=== PATIENT | female | born 1935 | race Two or more races ===

== ENCOUNTER 2019-01-20 09:09 | Inpatient (IN) | payer OTHER ==
[~2019-01-20] VITALS: Ht 152.4 cm; Wt 54.4 kg
[~2019-01-20 09:09] MED LIST: AMOX-427 PO
--- NOTE | 2019-01-20 09:16 | NUR ---
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 KEPT RESTED AND COMFORTABLE.
--- NOTE | 2019-01-20 09:17 | NUR ---
SEEN AND EXAMINED BY DR. TERRELL.
--- NOTE | 2019-01-20 09:18 | NUR ---
CODE STROKE ACTIVATED.
--- NOTE | 2019-01-20 09:18 | NUR ---
IV SALINE LOCK INSERTED AND LABS DRAWNED AND SENT TO LAB.
--- NOTE | 2019-01-20 09:20 | NUR ---
PT IS WHEELD TO CT SCAN VIA ACLS PROTOCOL.
--- NOTE | 2019-01-20 09:24 | NUR ---
CALLED [facility] STROKE HOTLINE SPOKE WING TO PRESENT CASE. AWAITING A CALL BACK FROM FROM STROKE DR GARCIA.
[2019-01-20 09:25] LABS: BASOPHILS % (AUTO) 0.5 % (0.0-2.0); EOSINOPHILS % (AUTO) 0.6 % (0.0-6.0); HEMATOCRIT 41 % (33-45); HEMOGLOBIN 13.5 g/dL (11.5-14.8); LYMPHOCYTES # (AUTO) 1.9 /CMM (0.8-4.8); LYMPHOCYTES % (AUTO) 23.3 % (20.0-44.0); MEAN CORPUSCULAR HGB CONC 33 g/dl (31.0-36.0); MEAN CORPUSCULAR VOLUME 89 fL (82-100); MONOCYTES # (AUTO) 0.6 /CMM (0.1-1.30); MONOCYTES % (AUTO) 7.8 % (2.0-12.0); NEUTROPHILS # (AUTO) 5.6 /CMM (1.8-8.9); NEUTROPHILS % (AUTO) 67.8 % (43.0-81.0); PLATELET COUNT (AUTO) 229 /CMM (150-450); RED BLOOD CELL COUNT(AUTO) 4.57 MIL/uL (4.0-5.2); WHITE BLOOD COUNT (AUTO) 8.2 K/uL (4.3-11.0)
--- NOTE | 2019-01-20 09:30 | NUR ---
PT IS BACK FROM THE CT SCAN.
--- NOTE | 2019-01-20 09:34 | NUR ---
DR. JOSE RICE FOR PT EVAL.
[2019-01-20 09:40] LABS: CHLORIDE 104 mmol/L (98-107); POTASSIUM 3.7 mmol/L (3.5-5.1); SODIUM SERUM 142 mmol/L (136-145)
[2019-01-20 09:41] LABS: ALANINE AMINOTRANSFERASE 11 U/L (12-78); ALBUMIN 3.2 g/dL (3.4-5.0); ALKALINE PHOSPHATASE 96 U/L (46-116); ASPARTATE AMINOTRANSFERASE 12 U/L (15-37); BILIRUBIN,DIRECT 0.1 mg/dL (0.0-0.2); BILIRUBIN,TOTAL 0.6 mg/dL (0.2-1.0); CALCIUM, SERUM 9.5 mg/dL (8.5-10.1); CARBON DIOXIDE 30 mmol/L (21-32); CHOLESTEROL 171 mg/dL (<200); CREATININE 0.9 mg/dL (0.6-1.3); GLUCOSE 107 mg/dL (74-106); HDL CHOLESTEROL 57 mg/dL (40-60); LDL 104 mg/dL (0-99); TOTAL PROTEIN, SERUM 7.6 g/dL (6.4-8.2); TRIGLYCERIDES 79 mg/dL (30-150); UREA NITROGEN, BLOOD 13 mg/dL (7-18)
[2019-01-20] MEDS ORDERED: IOHEXOL-350 100 ML VIAL IV ONE (10:15)
[2019-01-20] MEDS ORDERED: IV NS 0.9% 500 ML IV ONE (10:16)
--- NOTE | 2019-01-20 10:23 | NUR ---
PT TAKEN TO RADIOLOGY VIA [facility]INCE
--- NOTE | 2019-01-20 11:03 | NUR ---
DR FRIAS PAGED THRU CELL
--- NOTE | 2019-01-20 11:09 | NUR ---
310-1 DR FRIAS DX: TIA STROKE
[2019-01-20] MEDS ORDERED: AMLO5TAB9 PO (11:14)
[2019-01-20] MEDS ORDERED: BENZ-38 PO (11:14)
[2019-01-20] MEDS ORDERED: LEVO750T46 PO (11:14)
[2019-01-20] MEDS ORDERED: FLUT12AE5 IH (11:14)
[2019-01-20] MEDS ORDERED: ASPIRIN 325 MG TABLET PO ONE (11:30)
--- NOTE | 2019-01-20 11:33 | NUR ---
REPORT GIVEN TO SHANICE VALDES FOR FELIPA
[2019-01-20] MEDS ORDERED: ASPIRIN 325 MG TABLET ONE (11:35)
--- NOTE | 2019-01-20 11:38 | NUR ---
REPORT GIVEN TO SHANICE LEÓN FOR FELIPA
--- NOTE | 2019-01-20 12:26 | NUR ---
TEXTED DR. JONES FOR MRI APPROVAL.
[2019-01-20 13:00] VITALS: BP 121/78
--- NOTE | 2019-01-20 13:00 | NUR ---
PT TRANSFERRED TO [address]/[facility] VIA ACLS PROTOCOL
--- NOTE | 2019-01-20 13:04 | NUR ---
juni received an 83 year old female, from er, came in w/ dx of tia, awake,alert,oriented x4,not in any form of distress, respirations even and unlabored,no sob noted, lungs are clear,abdomen soft,positive bowel sounds,denies pain at thisitme, will monitor patient's condition.
--- NOTE | 2019-01-20 13:30 | NUR ---
ms jessica lunch served,tolerated well.spoke w/ dr. saldana for orders.
--- NOTE | 2019-01-20 15:11 | NUR ---
ms rn went down for mri.
[2019-01-20] MEDS: LEVOFLOXACIN (500MG) 500 MG TABLET PO SCH (15:45)
[2019-01-20 16:00] VITALS: BP 130/53
--- NOTE | 2019-01-20 17:42 | NUR ---
ms rn on bed, no distress ,echo 65-70%, mri negative,all needs attended.
[2019-01-20] MEDS ORDERED: GADODIAMIDE 5 MMOL/10 ML VIAL IJ ONE (17:45)
[2019-01-20] MEDS ORDERED: GADODIAMIDE 2.5 MMOL/5 ML VIAL IJ ONE (17:45)
--- NOTE | 2019-01-20 19:50 | NUR ---
PILLOWCASE CLEANER OPENING NOTES RECEIVED PATIENT IN BED AWAKE, ALERT AND ORIENTED X4, VERBALLY RESPONSIVE, ABLE TO MAKE NEEDS KNOWN. BREATHING EVEN AND UNLABORED. NO SOB NOTED. TOLERATING ROOM AIR. NO COMPLAINTS OF PAIN OR DISCOMFORT. NO FACIAL GRIMACING. IV ON LEFT AC G#18 INTACT AND PATENT. SKIN DRY AND WARM TO TOUCH. AFEBRILE. ALL OTHER NEEDS ATTENDED TO. SAFETY MEASURES IN PLACE. CALL LIGHT WITHIN REACH. WILL CONTINUE TO MONITOR.
[2019-01-20 20:00] VITALS: BP 132/67
[2019-01-20] MEDS ORDERED: ATORVASTATIN 10 MG TABLET PO SCH (22:00)
[2019-01-21 00:05] VITALS: BP 128/66
[2019-01-21 00:13] VITALS: BP 128/66
[2019-01-21 04:00] VITALS: BP 137/66
[2019-01-21 06:25] LABS: BASOPHILS % (AUTO) 0.4 % (0.0-2.0); EOSINOPHILS % (AUTO) 1.1 % (0.0-6.0); HEMATOCRIT 37 % (33-45); HEMOGLOBIN 12.2 g/dL (11.5-14.8); LYMPHOCYTES # (AUTO) 1.2 /CMM (0.8-4.8); LYMPHOCYTES % (AUTO) 20.3 % (20.0-44.0); MEAN CORPUSCULAR HGB CONC 33 g/dl (31.0-36.0); MEAN CORPUSCULAR VOLUME 89 fL (82-100); MONOCYTES # (AUTO) 0.5 /CMM (0.1-1.30); MONOCYTES % (AUTO) 8.9 % (2.0-12.0); NEUTROPHILS # (AUTO) 4.2 /CMM (1.8-8.9); NEUTROPHILS % (AUTO) 69.3 % (43.0-81.0); PLATELET COUNT (AUTO) 211 /CMM (150-450); RED BLOOD CELL COUNT(AUTO) 4.17 MIL/uL (4.0-5.2); WHITE BLOOD COUNT (AUTO) 6.1 K/uL (4.3-11.0)
--- NOTE | 2019-01-21 06:47 | NUR ---
EYE SPECIALIST CLOSING NOTES PATIENT RESTING IN BED. NO ACUTE CHANGES THROUGHOUT SHIFT. BREATHING EVEN AND UNLABORED. NO SOB NOTED. TOLERATING ROOM AIR. NO COMPLAINTS OF PAIN OR DISCOMFORT. NO FACIAL GRIMACING. IV ON LEFT AC G#18 INTACT AND PATENT. SKIN DRY AND WARM TO TOUCH. AFEBRILE. ALL OTHER NEEDS ATTENDED TO. SAFETY MEASURES IN PLACE. CALL LIGHT WITHIN REACH. WILL ENDORSE TO ONCOMING NURSE FOR FELIPA.
[2019-01-21 06:48] LABS: CALCIUM, SERUM 8.9 mg/dL (8.5-10.1); CARBON DIOXIDE 32 mmol/L (21-32); CHLORIDE 108 mmol/L (98-107); CREATININE 0.8 mg/dL (0.6-1.3); GLUCOSE 97 mg/dL (74-106); MAGNESIUM 1.8 mg/dL (1.8-2.4); PHOSPHORUS 3.8 mg/dL (2.5-4.9); POTASSIUM 4.4 mmol/L (3.5-5.1); SODIUM SERUM 146 mmol/L (136-145); UREA NITROGEN, BLOOD 13 mg/dL (7-18)
[2019-01-21 06:56] LABS: CHOLESTEROL 155 mg/dL (<200); HDL CHOLESTEROL 49 mg/dL (40-60); LDL 96 mg/dL (0-99); THYROID STIMULATING HORMONE 2.459 uIU/mL (0.358-3.74); TRIGLYCERIDES 68 mg/dL (30-150)
[2019-01-21 08:00] VITALS: BP 148/74
--- NOTE | 2019-01-21 08:00 | NUR ---
RN NOTES RECEIVED PATIENT IN THE BED, A/O X3/4, PATIENT STABLE NO ACUTE RESPIRATORY DISTRESS, STROKE ASSESSMENT DONE. PATIENT STABLE , V/S STABLE, UPPER AND LOWER EXTREMITIES STABLE, NO WEAKNESS NOTED. PATIENT REFUSED PAIN AT THIS TIME, SCHEDULED MEDICATION ADMINISTERED. CALL LIGHT WITHIN TO REACH. PATIENT USING BATHROOM, SAFETY PRECAUTION MAINTAINED ALL THE TIME.
[2019-01-21] MEDS ORDERED: ATOR10TA PO (08:17)
[2019-01-21] MEDS ORDERED: ASPI-1169 PO (08:17)
[2019-01-21 08:49] VITALS: BP 148/74
[2019-01-21] MEDS ORDERED: ASPIRIN 81 MG TAB.CHEW PO SCH (09:00)
[2019-01-21] MEDS ORDERED: AMLODIPINE BESYLATE 5 MG TABLET PO SCH (09:00)
--- NOTE | 2019-01-21 12:30 | NUR ---
RN NOTES PER PATIENT REFUSED TO WAIT NEURO LOAN COORDINATOR BEFORE DISCHARGE. NOTIFIED DR TIDWELL, AND PER IF PATIENT NOT WAITING NEURO CONSULTATION TO DISCHARGE HOME SAFETY, WILL SIGN AMA. ORDER TAKEN AND CARRIED OUT.
--- NOTE | 2019-01-21 13:00 | NUR ---
RN NOTES NOTIFIED PATIENT AND Dr. TIDWELL'S ORDER. PATIENT KIKI TO WAIT NEURO WEB ASSISTANT CONSULTATION. CONTINUED MONITORING.
[2019-01-21] MEDS: LEVOFLOXACIN (500MG) 500 MG TABLET PO SCH (16:04)
--- NOTE | 2019-01-21 16:21 | NUR ---
DISCHARGE NOTES PATIENT DISCHARGE HOME AT THIS TIME CLEARED WITH NEURO BRIDGE CREW MEMBER. PATIENT A/O X4, MED COMPLAINT, REFUSED PAIN AT THIS TIME. MED RECONCILIATION AND DISCHARGE ORDER REVIEWED AND EXPLAINED TO PATIENT AND . PATIENT VERBALIZED UNDERSTANDING. BELONGING WITH THE PATIENT. PATIENT SIGN PAPERWORK. PRESCRIPTION HANDED TO THE PATIENT. PATIENT WILL FOLLOW PRIMARY MD, AND TAKE HOME MEDICATION. ESCORTED PATIENT TO THE LOBBY FOR SAFETY. PATIENT SUPERVISOR PAIRING AND INSPECTING BY NAME CHRIS TRONCOSO # [phone].
== END 2019-01-21 16:15 | disposition home health service (06) | DRG 69 ==
LOC: ER 09:09 → TELE 11:16 → MED 01-21 09:15
PROVIDERS: ADMIT Internal Medicine; ATTEND Internal Medicine
DX: G45.9 Transient cerebral ischemic attack, unspecified (principal); I67.6 Nonpyogenic thrombosis of intracranial venous system; I10 Essential (primary) hypertension; Z79.899 Other long term (current) drug therapy; Z79.82 Long term (current) use of aspirin
CPT/HCPCS: 36415; 70450-TC; 70496-TC; 70498-TC; 70553-TC; 71045-TC; 80048-TC; 80061-TC; 80076-TC; 82962-TC; 83735-TC; 84100-TC; 84443-TC; 84484-TC; 85025-TC; 85730-TC; 87081-TC; 93307-TC; A9579; G0378; J7040; Q9967